=== PATIENT | female | born 1990 | race African-American/Black ===

== ENCOUNTER 2020-11-25 10:26 | Emergency (ER) | payer OTHER ==
[~2020-11-25] VITALS: Ht 157.5 cm; Wt 65.0 kg
[2020-11-25] MEDS ORDERED: ESCI20TA37 PO (10:37)
[2020-11-25] MEDS ORDERED: AMPH20CA7 PO (10:37)
[2020-11-25] MEDS ORDERED: HydrOXYzine PAMOATE 25 MG CAPSULE PO ONE (11:00)
[2020-11-25 11:56] VITALS: BP 120/78
== END 2020-11-25 12:30 | disposition home or self-care (01) ==
LOC: EMS 10:26
DX: F41.9 Anxiety disorder, unspecified (principal)
CPT/HCPCS: 99283